=== PATIENT | female | born 1975 | race Caucasian/White ===

== ENCOUNTER 2020-09-26 18:52 | Emergency (ER) | payer MEDICAID ==
[~2020-09-26] VITALS: Ht 162.6 cm; Wt 86.4 kg
[~2020-09-26 18:52] MED LIST: PRED20TA PO
[2020-09-26] MEDS ORDERED: ondansetron 4mg rapidly disintigrating tab PO ONE (21:45)
[2020-09-26] MEDS ORDERED: acetaminophen 325mg tablet PO ONE (21:45)
[2020-09-26] MEDS ORDERED: clindamycin 150mg capsule PO ONE (21:45)
[2020-09-26] MEDS ORDERED: CLIN150C2 PO (21:45)
[2020-09-26] MEDS ORDERED: ibuprofen tablet 400 MG TABLET PO ONE (21:45)
[2020-09-26 23:48] VITALS: BP 131/81
== END 2020-09-26 23:51 | disposition home or self-care (01) ==
LOC: ER 18:53
DX: L03.115 Cellulitis of right lower limb (principal); J45.909 Unspecified asthma, uncomplicated; E07.9 Disorder of thyroid, unspecified; Z88.2 Allergy status to sulfonamides; Z88.8 Allergy status to other drugs, medicaments and biological substances; Z98.890 Other specified postprocedural states
CPT/HCPCS: 93971; 99284

== ENCOUNTER 2022-10-25 15:39 | Emergency (ER) | payer MEDICAID ==
[~2022-10-25] VITALS: Ht 162.6 cm; Wt 83.4 kg
[2022-10-25 17:31] VITALS: BP 133/78
== END 2022-10-25 18:46 | disposition home or self-care (01) ==
LOC: ER 15:40
DX: S80.12XA Contusion of left lower leg, initial encounter (principal); J45.909 Unspecified asthma, uncomplicated; M79.605 Pain in left leg; Z88.2 Allergy status to sulfonamides; Z88.8 Allergy status to other drugs, medicaments and biological substances; Z98.890 Other specified postprocedural states; W01.0XXA Fall on same level from slipping, tripping and stumbling without subsequent striking against object, initial encounter; Y93.89 Activity, other specified; Y92.89 Other specified places as the place of occurrence of the external cause; Y99.8 Other external cause status
CPT/HCPCS: 73590; 93971; 99284; A6449

== ENCOUNTER 2022-11-16 18:42 | Emergency (ER) | payer MEDICAID ==
[~2022-11-16] VITALS: Ht 162.6 cm; Wt 81.8 kg
[2022-11-16 18:56] VITALS: BP 160/98
== END 2022-11-16 20:28 | disposition home or self-care (01) ==
LOC: ER 18:43
DX: S93.402A Sprain of unspecified ligament of left ankle, initial encounter (principal); J45.909 Unspecified asthma, uncomplicated; E03.9 Hypothyroidism, unspecified; Z88.8 Allergy status to other drugs, medicaments and biological substances; Z88.2 Allergy status to sulfonamides; X58.XXXA Exposure to other specified factors, initial encounter; Y93.89 Activity, other specified; Y92.89 Other specified places as the place of occurrence of the external cause; Y99.8 Other external cause status
CPT/HCPCS: 99281